=== PATIENT | female | born 1990 | race Caucasian/White ===

== ENCOUNTER 2021-07-16 15:56 | Emergency (ER) | payer BC, SELFPAY ==
[2021-07-16 16:40] VITALS: BP 128/77; PULSE 83; RESP 18; TEMP 36.9; O2SAT 98; BMI 34.8
[2021-07-16 17:15] LABS: UTC Strep Screen (Rapid) Negative (Negative)
--- NOTE | 2021-07-16 17:17 | HMH.EDUTC ---
[facility] Disposition Clinical Impression: Sore throat Disposition: Home, Self-Care Condition on Discharge: Good Instructions: Sore Throat, Middle Ear Infection Additional Instructions: *Monitor Temp, Over the counter Motrin or Tylenol as directed/as needed Tylenol every 4 hours and Motrin every 6 hours (as long as your family doctor has told you that you can take it) for fever or pain. and straight to ER if unable to lower temp less than 101.0 after medication given *Warm salt water gargles may help to soothe the throat *Throat Lozenges *Warm fluids like tea with honey may help to soothe the throat *Sleep elevated *Humidifier/Vaporizer Your throat swab was sent for culture. Those results are typically sent to your primary care. Be sure to follow up in 2-3 days with your family doctor/primary care physician if no improvement so they can review those result and treat if necessary. If you don?t have a primary care doctor, I recommend you get one but in the mean time, you will have to return to a walk in clinic Follow up IMMEDIATELY for new or worsening symptoms or no Noticeable improvement over the next 48-72 hours. 911 for difficulty breathing or swallowing Prescriptions: methylPREDNISolone [Medrol 4mg tab] 4 mg PO DIRECTED #21 tab Transmission Status: Pending to [id number] Cefdinir [Omnicef 300mg Capsule] 300 mg PO BID #20 cap Transmission Status: Pending to [id number] Referrals: Juan Jose Hilliard MD [Primary Care Provider] - Forms: Work/School Release Medical Decision Making - Lucas Inquiry Pt receiving controlled substance: No Lucas was queried for this patient: No Vital Signs: 07/16/21 16:40 07/16/21 17:25 Temperature 98.4 F 98.4 F Temperature Source Oral Pulse Rate 83 Pulse Rate [Right Brachial] 83 Respiratory Rate 18 18 Blood Pressure 128/77 Blood Pressure [Right Arm] 128/77 Blood Pressure Mean [Right Arm] 94 Blood Pressure Source [Right Arm] Automatic Cuff Blood Pressure Position [Right Arm] Sitting 02 Sat by Pulse Oximetry 98 Oxygen Delivery Method Room Air - Lab Data Lab results reviewed: Yes: I reviewed the patient's lab results. Lab Results 07/16/21 16:50: Strep Scn Rapid Clinic Negative 07/16/21 17:15: Monoscreen Negative Orders (Tests/Meds): ORDERS Category Date Time Status Strep Screen Confirmation Stat Micro 07/16/21 16:50 Received [facility] HPI - General Stated complaint: sore throat Time Seen by Provider: 07/16/21 17:17 Mode of Arrival: Ambulatory Source of Information: Patient Limitations: No Limitations Description of Symptoms (Recalled from Triage Doc. by RN): PATIENT C/O SORE/SWOLLEN THROAT SINCE YESTERDAY HEENT Symptoms (Recalled from RN notes): Yes Resp Symptoms (Recalled from RN notes): No Skin Symptoms (Recalled from RN notes): No MS Symptoms (Recalled from RN notes): No Functional Status (Recalled from RN notes): WNL - History of Present Illness Provider Complaint: Patient states that she has been having pain in her right ear and sore throat since yesterday States that she has been having swelling in her tonsils and noticed it looked white all on the right side of her throat and hurts when she swallows States that this evening she was still feeling bad so she came in to get checked - Related Data Previous Rx's Medication Instructions Recorded Azithromycin [Zithromax 250mg 250 mg PO DIRECTED #6 tab 12/02/18 tab] Cefdinir [Omnicef 300mg Capsule] 300 mg PO BID #20 cap 07/16/21 methylPREDNISolone [Medrol 4mg 4 mg PO DIRECTED #21 tab 07/16/21 tab] Allergies Allergy/AdvReac Type Severity Reaction Status Date / Time No Known Allergies Allergy Verified 12/02/18 18:07 - Worker's Comp Is this a Worker's Comp case?: No [facility] History - Hepatitis A Screen Drug use history?: No High risk sexual behaviors?: No History of sexually transmitted infection?: No Currently employed?: No
[2021-07-16 17:25] VITALS: BP 128/77; PULSE 83; RESP 18; TEMP 36.9; O2SAT 98
[2021-07-16 18:09] LABS: Monoscreen (Rapid) Negative (Negative)
== END 2021-07-16 17:30 | disposition home or self-care (01) ==
PROVIDERS: Emergency Provider Nurse Practitioner; PCP Family Medicine
DX: J02.9 Acute pharyngitis, unspecified (principal)
CPT/HCPCS: 86318; 87880; 99203; G0463

== ENCOUNTER 2022-01-29 17:48 | Emergency (ER) | payer OTHER, SELFPAY ==
[2022-01-29 18:11] VITALS: BP 130/83; PULSE 89; RESP 16; TEMP 37; O2SAT 98; BMI 33.0
--- NOTE | 2022-01-29 18:22 | PC.NURSE ---
VISUAL ACUITY LT 20/20 RT 20/25 -1
--- NOTE | 2022-01-29 18:23 | HMH.EDGENADL ---
ED Disposition Clinical Impression: Conjunctival abrasion Qualifiers: Encounter type: initial encounter Laterality: right Qualified Code(s): S05.01XA - Injury of conjunctiva and corneal abrasion without foreign body, right eye, initial encounter Disposition: Home, Self-Care Condition on Discharge: Good Additional Instructions: He is use the antibiotic ointment 4 times per day. Do not rub your eye and if you feel foreign body sensation, you may attempt to gently flush it out with water. Follow-up with your eye doctor tomorrow. Referrals: Juan Jose Hilliard MD [Primary Care Provider] - - Critical Care Critical Care Time: No Attestation: On , the high probability of a clinically significant, sudden or life threatening deterioration of the following system(s) required my full and direct attention, intervention and personal management. The time I documented below is in addition to time spent performing reported procedures but includes the following listed in this critical care notation. Medical Decision Making - Medical Records Medical records reviewed: Yes: I reviewed the patient's medical records. - Lucas Inquiry Pt receiving controlled substance: No Vital Signs: 01/29/22 18:11 Temperature 98.6 F Temperature Source Oral Pulse Rate [Radial] 89 Respiratory Rate 16 Blood Pressure [Right Arm] 130/83 Blood Pressure Mean [Right Arm] 98 Blood Pressure Position [Right Arm] Sitting 02 Sat by Pulse Oximetry 98 Oxygen Delivery Method Room Air Medical Decision Narrative: Patient is a 31-year-old female presenting with a chief complaint of acute right eye pain. Differential diagnosis includes, but is not limited to, corneal versus conjunctival abrasion, laceration, open globe injury, periorbital versus orbital cellulitis, other. Initial exam, patient is hemodynamically stable nontoxic-appearing. Physical exam with fluorescein stain shows that patient's pain resolved after tetracaine drops and uptake is surrounding the inferior limbus. Consistent with limbal abrasion. Patient was given erythromycin ointment, advised regarding supportive care and advised to follow-up with eye doctor tomorrow. General Adult HPI - General Chief complaint: Eye Problems Stated complaint: Foreign body Right eye Time Seen by Provider: 01/29/22 18:20 Mode of Arrival: Ambulatory Limitations: No Limitations Description of Symptoms (Recalled from ER Triage Doc. by RN): TO ED PER PVT CAR WITH C/O RT EYE REDNESS, SWELLING NOTED TO SCLERA, PT C/O FB SENSATION STARTING APPROX 1HR CORN GRINDER. - History of Present Illness HPI narrative: Patient is a healthy 31-year-old female presenting with chief complaint of right eye pain. Patient states that she was outside and felt like she had something in her eye and rubbed it. She has been experiencing a foreign body sensation and pain since. She denies any vision changes, penetrating injury and does not wear contact lenses. No other complaints. - Related Data Previous Rx's Medication Instructions Recorded Azithromycin [Zithromax 250mg 250 mg PO DIRECTED #6 tab 12/02/18 tab] Cefdinir [Omnicef 300mg Capsule] 300 mg PO BID #20 cap 07/16/21 methylPREDNISolone [Medrol 4mg 4 mg PO DIRECTED #21 tab 07/16/21 tab] Allergies Allergy/AdvReac Type Severity Reaction Status Date / Time No Known Allergies Allergy Verified 12/02/18 18:07 [facility] History - Hepatitis A Screen Attestation statement:: This patient has been screened for Hepatitis A risk factors. - Social History Alcohol Intake: never Occupational Status: other ROS Obtained: Yes Systems reviewed as appropriate & no additional complaints - Eyes Eyes: Denies blurry vision, Denies change in vision, Reports eye pain Physical Exam - General General appearance: alert, in no apparent distress - Head Head exam: atraumatic, normocephalic - Eye Eye exam: Present: PERRL, EOMI (Periorbital swelling. Patient h
[2022-01-29 18:55] VITALS: BP 130/80; PULSE 89; RESP 18; TEMP 36.8; O2SAT 99
[2022-01-29 18:57] VITALS: BP 122/74; PULSE 98; RESP 16; TEMP 36.6; O2SAT 98
== END 2022-01-29 18:58 | disposition home or self-care (01) ==
PROVIDERS: Emergency Provider Emergency Medicine; PCP Family Medicine
DX: S05.01XA Injury of conjunctiva and corneal abrasion without foreign body, right eye, initial encounter (principal); Z79.52 Long term (current) use of systemic steroids
CPT/HCPCS: 99282

== ENCOUNTER 2023-06-10 08:35 | Emergency (ER) | payer BC, SELFPAY ==
[2023-06-10 08:45] VITALS: BP 140/87; PULSE 103; RESP 18; TEMP 36.7; O2SAT 98; BMI 33.5
--- NOTE | 2023-06-10 08:56 | EXP.UTC ---
Discharge Plan Disposition Patient Disposition: Home, Self-Care Condition: Good Prescriptions Prescriptions: New Proctofoam HC 1-1 % foam 1 applic UT QID PRN (Reason: hemorrhoids) Qty: 10 0RF bacitracin 500 unit/gram ointment 1 applic topical TID Qty: 28 0RF Rx Instructions: apply to abrasions as prescribed No Action Vivian 24 Fe 1 mg-20 mcg (24)/75 mg (4) tablet 1 tab PO DAILY lisdexamfetamine 40 mg capsule 40 mg PO DAILY Patient Comments: TAKE 1 CAPSULE BY MOUTH EVERY DAY IN THE MORNING Referrals Follow up/Referrals: Juan Jose Hilliard MD [Primary Care Provider] - See instructions Activity Restrictions/Add. Instructions Additional Instructions/Restrictions: Sit in 8 to 10 centimetres (3 to 4 inches) of warm water (sitz bath) 3 times a day and after bowel movements. The warm water helps with pain and itching.Put ice on your anal area several times a day for 10 minutes at a time. Put a thin cloth between the ice and your skin. Follow this by placing a warm, wet towel on the area for another 10 to 20 minutes. Keep the anal area clean, but be gentle. Use water and a fragrance-free soap, or use baby wipes or medicated pads such as Tucks.Wear cotton underwear and loose clothing to decrease moisture in the anal area.Eat more fibre. Include foods such as whole grain breads and cereals, raw vegetables, raw and dried fruits, and beans.Drink plenty of fluids. If you have kidney, heart, or liver disease and have to limit fluids, talk with your doctor before you increase the amount of fluids you drink. Use medication as prescribed Follow up with your Family Doctor if no improvement or any worsening of symptoms Clinical Impressions Clinical Impression: Hemorrhoids Qualifiers: Hemorrhoid type: unspecified Qualified Code(s): K64.9 - Unspecified hemorrhoids Instructions Patient Instructions: Hemorrhoids, DI for Hemorrhoids Discharge ED Provider: Caroline Hood [facility] General Stated complaint: pain in buttocks, no accident Mode of Arrival: Ambulatory Source of Information: Patient Limitations: No Limitations Time Seen by Provider: 06/10/23 08:56 Description of Symptoms (Recalled from Triage Doc. by RN): PATIENT C/O POSSIBLE HEMORRHOID X 1 WEEK HEENT Symptoms (Recalled from RN notes): No Resp Symptoms (Recalled from RN notes): No Skin Symptoms (Recalled from RN notes): No MS Symptoms (Recalled from RN notes): No Functional Status (Recalled from RN notes): WNL History of Present Illness Provider Complaint: Patient states that she has been having issues with a hemorrhoid for about a week States that she has been trying not to scratch but it has been hard she has been itching and now she feels irritated back there and thought she may have a yeast infection but not sure States that today it was feeling worse so she came in to get it looked at Related Data Home Medications Medication Instructions Recorded Confirmed norethindrone 1 mg-ethinyl 1 tab PO DAILY Control 03/06/23 06/10/23 estradiol 20 mcg (24)-iron 75 mg (4) tablet (Vivian 24 Fe) lisdexamfetamine 40 mg capsule 40 mg PO DAILY ADHD 06/10/23 06/10/23 Previous Rx's Medication Instructions Recorded bacitracin 500 unit/gram topical 1 applic topical TID #28 grams 06/10/23 ointment hydrocortisone 1 %-pramoxine 1 % 1 applic UT QID PRN hemorrhoids 06/10/23 rectal foam (Proctofoam HC) #10 grams Allergies Allergy/AdvReac Type Severity Reaction Status Date / Time No Known Allergies Allergy Verified 03/06/23 14:05 Worker's Comp Is this a Worker's Comp case?: No [facility] Disclaimer: The information contained in this section may have been updated after the patient was seen, as this information can be updated by other users. Medical History (Updated 06/10/23 @ 09:17 by Caroline Hood APRN) ADHD Surgical History (Updated 06/10/23 @ 08:57 by Paulina Goodwin RN) History of cholecystectomy
[2023-06-10 09:18] VITALS: BP 140/87; PULSE 103; RESP 18; TEMP 36.7; O2SAT 98
== END 2023-06-10 09:22 | disposition home or self-care (01) ==
PROVIDERS: Emergency Provider Nurse Practitioner; PCP Family Medicine
DX: K64.9 Unspecified hemorrhoids (principal); F90.9 Attention-deficit hyperactivity disorder, unspecified type; F17.210 Nicotine dependence, cigarettes, uncomplicated
CPT/HCPCS: 99212; 99214; G0463

== ENCOUNTER 2023-10-17 18:51 | Outpatient (CLI) | payer BC, SELFPAY | END 2023-10-17 23:59 | LOC: LAB.DROPOF 18:51 | PROVIDERS: PCP Student in an Organized Health Care Education/Training Program; Visit Provider Student in an Organized Health Care Education/Training Program | DX: J02.9 Acute pharyngitis, unspecified (principal); R51.9 Headache, unspecified; R09.81 Nasal congestion; U07.1 COVID-19 | CPT/HCPCS: 87070; 87635 ==

== ENCOUNTER 2024-02-18 20:53 | Emergency (ER) | payer BC, SELFPAY ==
[2024-02-18 20:54] VITALS: BP 141/88; PULSE 84; RESP 20; TEMP 36.4; O2SAT 99; BMI 35.4
--- NOTE | 2024-02-18 20:54 | ED_ITS ---
<Statement entered by Nancy Kee MD - 02/18/24 22:43> I was consulted by the ANGELIQUE, and we discussed the complexity of the problems being addressed. I approved the treatment and management plan for this patient's care in the emergency department, thus performing a substantive portion of the medical decision making. Nancy Kee MD, RYAN, FACEP Discharge Plan Disposition Patient Disposition: Home, Self-Care Condition: Good Prescriptions Prescriptions: New cephalexin 500 mg capsule 500 mg PO BID 7 Days Qty: 14 0RF No Action methylprednisolone 4 mg tablets,dose pack See Rx Instructions PO PER PKG DIR Qty: 21 0RF Rx Instructions: PO PER PKG DIR Vivian 24 Fe 1 mg-20 mcg (24)/75 mg (4) tablet 1 tab PO DAILY lisdexamfetamine 40 mg capsule 40 mg PO DAILY Patient Comments: TAKE 1 CAPSULE BY MOUTH EVERY DAY IN THE MORNING Referrals Follow up/Referrals: Juan Jose Hilliard MD [Primary Care Provider] - See instructions Activity Restrictions/Add. Instructions Additional Instructions/Restrictions: Keep wound clean dry and covered. You may shower with soap and water. Suture removal in 7 days. Return to ER for any worsening signs or symptoms including increasing pain redness or drainage. Clinical Impressions Clinical Impression: Laceration Instructions Patient Instructions: DI for Laceration Repair Discharge ED Provider: Nancy Kee General Adult HPI General Chief complaint: Wound/Laceration Stated complaint: AO06/18@[id number] lac LT hand Time Seen by Provider: 02/18/24 20:54 History of Present Illness HPI narrative: Patient presents for evaluation of a laceration. Patient was utilizing a knife and crafting project and accidentally stabbed herself in her left thenar eminence. She denies loss of motor or sensory function and only pain. Related Data Home Medications Medication Instructions Recorded Confirmed norethindrone 1 mg-ethinyl 1 tab PO DAILY Control 03/06/23 10/17/23 estradiol 20 mcg (24)-iron 75 mg (4) tablet (Vivian 24 Fe) lisdexamfetamine 40 mg capsule 40 mg PO DAILY ADHD 06/10/23 10/17/23 Previous Rx's Medication Instructions Recorded methylprednisolone 4 mg tablets in See Rx Instructions PO PER PKG DIR 10/17/23 a dose pack #21 tabs cephalexin 500 mg capsule 500 mg PO BID 7 days #14 caps 02/18/24 Allergies Allergy/AdvReac Type Severity Reaction Status Date / Time No Known Allergies Allergy Verified 10/17/23 08:38 [facility] Disclaimer: The information contained in this section may have been updated after the patient was seen, as this information can be updated by other users. Medical History ADHD Surgical History History of cholecystectomy Family History Other No significant family history Social History Smoking Status: Never smoker alcohol intake: never current occupational status: other Travel in the last 8 weeks: None ROS Obtained: Yes Systems reviewed as appropriate & no additional complaints except as documented Physical Exam General General appearance: alert and in no apparent distress Respiratory Respiratory exam: Present normal lung sounds bilaterally Cardiovascular Cardiovascular exam: Present regular rate Expanded Upper Extremity Exam Left: Hand L/R front image: 2 1. laceration (1.5 cm laceration) Neurological Exam Neurological exam: Present alert, oriented X3 and CN II-XII intact Medical Decision Making Lucas Inquiry Pt receiving controlled substance: No Vital Signs: 02/18/24 20:54 Temperature 97.6 F Temperature Source Oral Pulse Rate [Left] 84 Respiratory Rate 20 Blood Pressure [Right Arm] 141/88 H Blood Pressure Mean [Right Arm] 105 Blood Pressure Position [Right Arm] Sitting 02 Sat by Pulse Oximetry 99 Oxygen Delivery Method Room Air Orders (Tests/Meds): ED MEDICATIONS Discontinued Medications Generic Name Dose Route Start Last Admin Trade Name Freq PRN Reason Stop Dose Admin Lidocaine/Epinephrine 10 ml 02/18/24 20:58 02/18/24 21:11 Lidocaine 1% W/Epi 1:100,000 20ml Vial SQ 02/18/24 20:59 5 mg ONCE ONE Administration Tetanus/Reduced Diphtheria/Acell Pertussis 0.5 ml 02/18/24 20:58 02/18/24 21:09 Tet/Diphth/Pert-Adult 0.5ml Syringe IM 02/18/24 20:59 0.5 ml .ONCE ONE Administration ORDERS Category Date Time Status Hand XR left minimum 3 views [XR hand LT min 3V] Stat Exams 02/18/24 20:58 Taken Medical Decision Narrative: In summary patient is a 32-year-old female who presents to the emergency department for evaluation of laceration. Patient is patient is hemodynamically stable upon arrival, afebrile. Physical exam is remarkable for 1-1/2 cm laceration to the thenar eminence of her left hand. Patient has full motor and sensory intact and has normal opposition.. Differential diagnosis includes simple superficial laceration versus tendon involvement versus nerve involvement versus bony involvement Cetera. Initial workup will be conducted with plain film x-rays.. Initial interventions include oral Tylenol and Motrin. Initial workup reviewed by me and my informal interpretation of her plain film x-ray shows no bony involvement.. Upon repeat evaluation I closed her wound primarily with four 4-0 nylon sutures after irrigation.. Given this appropriate for discharge with a prescription for Keflex first dose given here. Procedures Laceration Laceration 1: Site: hand Side (If applicable): left Size (cm): 1.5 Description: linear Depth: simple, single layer Local Anesthetic: lidocaine 1% and with epi Amount of anesthesia used (mL): 10 Pre-repair: wound explored, irrigated extensively and deep structures intact Skin layer closed with: nylon Size (cm): 4-0 Number of sutures: 4 Technique: simple, interrupted Critical Care Critical Care Time Critical Care Time: No
--- NOTE | 2024-02-18 20:58 | XR_ITS ---
PROCEDURE INFORMATION: Exam: XR Left Hand Exam date and time: 02/18/2024 8:58 PM Age: 33 years old Clinical indication: Injury or trauma; Other: Cut; Laceration; Hand; Left; Patient HX: Lac to thumb area palm side; Additional info: Cut with a kitchen knife TECHNIQUE: Imaging protocol: Radiologic exam of the left hand. Views: 3 or more views. COMPARISON: No relevant prior studies available. FINDINGS: Bones/joints: Normal. Soft tissues: Normal. IMPRESSION: No acute findings.
[2024-02-18 21:04] VITALS: BP 127/79; PULSE 86; RESP 18; TEMP 36.4; O2SAT 100
[2024-02-18] MEDS: TET/DIPHTH/PERT-ADULT 0.5ML SYRINGE 0.5 ML IM (21:09)
[2024-02-18] MEDS: LIDOCAINE 1% W/EPI 1:100,000 20ML VIAL 10 ML SQ (21:11)
[2024-02-18] MEDS: ACETAMINOPHEN 500MG TAB 1000 MG PO (21:38)
[2024-02-18] MEDS: cephALEXin 500MG CAPSULE 500 MG PO (21:39)
[2024-02-18] MEDS: IBUPROFEN 400 MG TABLET 800 MG PO (21:39)
[2024-02-18 22:29] VITALS: BP 132/84; PULSE 84; RESP 18; TEMP 36.4; O2SAT 99
== END 2024-02-18 22:30 | disposition home or self-care (01) ==
PROVIDERS: Emergency Provider Student in an Organized Health Care Education/Training Program; PCP Family Medicine
DX: S61.412A Laceration without foreign body of left hand, initial encounter (principal); W26.0XXA Contact with knife, initial encounter; Z23 Encounter for immunization
CPT/HCPCS: 12001; 73130; 90471; 90715; 99283

== ENCOUNTER 2024-04-13 09:43 | Outpatient (CLI) | payer BC, OTHER, SELFPAY ==
--- NOTE | 2024-04-13 09:44 | US_ITS ---
PROCEDURE: US TRANSVAGINAL CLINICAL INDICATION: thickened endometrium COMPARISON: No exams were available for comparison FINDINGS: Transvaginal sonographic images of the pelvis were obtained. UTERUS: 8.9cm x 4.3cmx 3.5 cm anteverted with a combined endometrial thickness of 4.4mm. There are small nabothian cysts in the cervix. The cervical canal has a thickened appearance and may be filled with mucus. There are several small calcifications adjacent to the posterior endometrium. There is a trace amount of fluid within the endometrium LEFT OVARY: 3.1cmx1.8 cmx1.6cm with a volume of 4.8ml. There are multiple small follicles. RIGHT OVARY: 3.4cmx 2.1cmx1.4cm with a volume of 4.9ml. There are multiple follicles within the right ovary. The largest measures 0.78 cm. Both ovaries are seen and appear normal. Doppler flow to both ovaries are seen. There is no fluid in the cul-de-sac. IMPRESSION: 1. Anteverted uterus normal in shape and size. The endometrium is thin. There are several small calcifications adjacent to the endometrium. 2. There is a small amount of fluid in the endometrium. 3. The cervical canal is thickened and may be filled with mucus. 4. Both ovaries are seen and appear normal. Both ovaries have multiple small follicles. 5. No fluid in the cul-de-sac. Dictated by: Aleksandr Strauss MD 04/13/2024 13:47 Aleksandr Strauss MD in [place] 04/13/2024 13:47
== END 2024-04-13 23:59 | disposition home or self-care (01) ==
LOC: RAD 09:44
PROVIDERS: PCP Family Medicine; Visit Provider Obstetrics & Gynecology
DX: R93.89 Abnormal findings on diagnostic imaging of other specified body structures (principal)
CPT/HCPCS: 76830

== ENCOUNTER 2024-04-24 08:03 | Outpatient (CLI) | payer BC, OTHER, SELFPAY ==
[2024-04-24 10:55] LABS: Hemoglobin A1C 5.1 % (4.0-6.0)
[2024-04-25 10:11] LABS: Prolactin 9.9 ng/mL (4.8-33.4)
== END 2024-04-24 23:59 | disposition home or self-care (01) ==
LOC: LAB 08:04
PROVIDERS: PCP Family Medicine; Visit Provider Obstetrics & Gynecology
DX: R53.83 Other fatigue (principal)
CPT/HCPCS: 36415; 83036; 84146; 84443

== ENCOUNTER 2024-05-19 13:45 | Outpatient (CLI) | payer BC, OTHER, SELFPAY ==
[2024-05-22 07:35] LABS: Neisseria gonorrhoeae, NAA Negative (Negative)
== END 2024-05-19 23:59 | disposition home or self-care (01) ==
LOC: LAB.DROPOF 05-20 12:43
PROVIDERS: PCP Obstetrics & Gynecology; Visit Provider Obstetrics & Gynecology
DX: N91.1 Secondary amenorrhea (principal)
CPT/HCPCS: 87491; 87591

== ENCOUNTER 2024-05-26 15:50 | Outpatient (CLI) | payer BC, OTHER, SELFPAY ==
--- NOTE | 2024-05-26 15:51 | US_ITS ---
PROCEDURE: US TRANSVAGINAL CLINICAL INDICATION: Non visible IUD Strings, check placement COMPARISON: US US TRANSVAGINAL from 04/13/2024 FINDINGS: Transvaginal sonographic images of the pelvis were obtained. UTERUS: 8.3 cm x 5.0cmx 3.7 cm anteverted with a combined endometrial thickness of 3.8mm. There is an IUD within the uterine cavity in the correct position. LEFT OVARY: 2.7 cmx1.6 cmx1.5cm with a volume of 3.3ml. There are several small follicles within the ovary. RIGHT OVARY: 3.5cmx 1.7 cmx1.8 cm with a volume of 5.7ml. There are several small follicles. Both ovaries are seen and appear normal. Doppler flow to both ovaries are seen. There is no fluid in the cul-de-sac. IMPRESSION: 1. Anteverted uterus normal in shape and size. The endometrium is thin measuring 3.8 mm. 2. There is an IUD within the uterine cavity in the correct position. 3. Both ovaries are seen and have multiple small follicles. 4. No fluid in the cul-de-sac. Dictated by: Aleksandr Strauss MD 05/26/2024 17:18 Aleksandr Strauss MD in [place] 05/26/2024 17:18
== END 2024-05-26 23:59 | disposition home or self-care (01) ==
LOC: RAD 15:51
PROVIDERS: PCP Family Medicine; Visit Provider Obstetrics & Gynecology
DX: Z97.5 Presence of (intrauterine) contraceptive device (principal)
CPT/HCPCS: 76830

== ENCOUNTER 2025-05-26 08:22 | Outpatient (CLI) | payer BC, SELFPAY ==
--- OUTSIDE RECORDS SUMMARY | 2024-05-28 05:45 | XMS_ITS ---
Author Organization [place] Address 12[address] [facility] [address] [place] [id number] Care Team Providers Care [employer] Assistant Principal Name Role Phone Florencio Hilliard Primary Care Provider Allergies No Known Allergies REASON FOR VISIT check up; refills Medications Medication SIG (Take, Route, Frequency, Duration) Notes Start Date End Date Status Fluconazole 150 MG 1 tablet Orally once 03/19/2024 Not-Taking Wegovy 1.7 MG/0.75ML 0.75 ml Subcutaneou s once a week 05/28/2024 Active Vyvanse 40 MG 1 capsule in the mor apple Orally Once a day 05/07/2024 Active Vital Signs Blood pressure systolic 118 mm Hg 05/28/20 24 Blood pressure diastolic 72 mm Hg 024 Heart Rate 94 /min 05/28/2024 Height 64.25 in 05/28/2024 Weight 188.4 lbs 05/28/2024 BMI 32.08 kg/m2 05/28/2024 Encounters Encounter Location Date Provider Diagnosis [facility] [address] [place] [phone] 05/28/2024 Florencio Hilliard Attention deficit hyperactivity disorder (ADHD), combined type F90.2 and Overweight E66.3 Assessments Encounter Date Diagnosis (ICD Code) Assessment Notes Treatment Notes Treatment Clinical Notes Section Notes 05/28/2024 Attention deficit hyperactivity disorder (ADHD), combined type (ICD-10 - F90.2) 05/28/2024 Overweight (ICD-10 - E66.3) Continue diet and exercise regimen Plan Of Treatment Medication Medication Name Sig Start Date Stop Date Notes Wegovy 1 MG/0.5ML 0.5 ml Subcutaneous once a week Wegovy 1.7 MG/0.75ML 0.75 ml Subcutaneous once a week 05/04 Vyvanse 40 MG 1 capsule in the mor apple Orally Once a day 05/07/2024 Treatment Notes Assessment Notes Overweight Continue diet and ex ercise regimen Next Appt Details Follow Up: 3 Months, Reason: Progress Notes * SATISH GALEDOB:1990 (34 yo F)Acc No.[id number]:05/28/2024 Progress Notes Patient: SATISH WHEAT Provider: Florencio Hilliard M.D. :1990 A ge:33 Y S ex:Female Date:05/28/2024 Address:[address] [place] [address] , [place], [id number] Subjective: * Chief Complaints: * 1 . Check up; refills. * HPI: P sychology: ADD/ADHD P t presents today for a check up and refills. .? C onstitutional: Regarding weight management, she feels her current dose of Wegovy is not working as well and would like to try the next higher dose. * ROS: D ERMATOLOGY: no R ish. n o H jun. G ASTROENTEROLOGY: no N ausea. n o V omiting. n o D iarrhea.? U ROLOGY: no D ifficulty urinating. n o B lood in urine. * Medical History: A DD, Lichen planus. * Surgical History: c holecystectomy 2012. * Hospitalization/Major Diagno stic Procedure: c hild 2017. * Family History: F ather: alive, diagnosed with Mental Illness. M other: alive. 1 sister(s) - healthy. 1 son(s) , 1 daughter(s) - healthy. . Pts Father has schizophrenia and bi-polar disorder Sister has ADHD. * Social History: C URRENT TOBACCO USE: No . C affeine: yes, frequency: 2 cups daily - coffee, tea, soft drinks. Home smoke detector use: yes. Alcohol: No. * Medications: T aking Wegovy 1 MG/0.5ML Solution Auto-injector 0.5 ml Subcutaneous once a week , Taking Vyvanse 40 MG Capsule 1 capsule in the morning Orally Once a day , Not- Taking Fluconazole 150 MG Tablet 1 tablet Orally once , Discontinued Clindamycin HCl 300 MG Capsule 1 capsule Orally Three times a day , Medication List reviewed and reconciled with the patient * Allergies: N .K.D.A. Objective: * Vitals: W t:188.4, Temp:98.4, BP:118/72, HR:94, Nurse:IMANI, Ht: 64.25, BMI:32.08. * Examination: G eneral Examination: General Appearance: A ffect good. Weight loss noted.?Heart: R SR. L ungs: c lear to auscultation. Assessment: * Assessment: 1. A ttention deficit hyperactivity disorder (ADHD), combined type - F90.2 (Primary) 2 . O verweight - E66.3 Plan: * Treatment: 2. O verweight Notes: Continue diet and exercise regimen 3. O thers Stop Wegovy Solution Auto-injector, 1 MG/0.5ML, 0.5 ml, Subcutaneous, once a week; I ncrease Wegovy Solution Auto-injector, 1.7 MG/0.75ML, 0.75 ml, Subcutaneous, once a week, 4, Refills 2. ? * Follow Up: 3 Months * Images: Billing Information: * Visit Code: 13065 Office Visit, Est Pt., Level 4. * Procedure Codes: * Electronic signature of Florencio Hilliard MD on 05/26/2025 at 08:43 AM EDT Sign off status: Pending * Provider: Florencio Hilliard M.D. Date: 05/28/2024 Generated for Daniel kirk/Tammie/eTransmitting on: 05/26/2025 08:43 AM EDT History and Physical Notes * HPI (History of Present Illness) Category Sub-Category Detail Notes Category Not es Psychology ADD/ADHD Pt presents today for a chec k up and refills. Examination Category Sub-Category Detail Notes Category Not es General Examination Heart: RSR Lungs: clear to auscultatio n General Appearance: Affect good. Weight loss noted
--- OUTSIDE RECORDS SUMMARY | 2024-08-18 12:00 | XMS_ITS ---
Author Organization [place] Address [address] [place] [address] [place] [phone] Care Team Providers Care Truck Striker Name Role Phone Florencio Hilliard Primary Care Provider Allergies No Known Allergies REASON FOR VISIT Checkup Medications Medication SIG (Take, Route, Frequency, Duration) Notes Start Date End Date Status Wegovy 2.4 MG/0.75ML 0.75 mL Subcutaneou s once weekly 06/25/2024 Active Vyvanse 40 MG 1 capsule in the mor apple Orally Once a day 08/18/2024 Active Fluconazole 150 MG 1 tablet Orally once 03/19/2024 Not-Taking Problems Problem Type SNOMED Code ICD Code Onset Dates Problem Status W/U Status Risk Notes Problem Overweight (505083177) Overweight (E66.3) Active confirmed Vital Signs Blood pressure systolic 114 mm Hg 08/18/20 24 Blood pressure diastolic 60 mm Hg 024 Heart Rate 70 /min 08/18/2024 Height 64.25 in 08/18/2024 Weight 179.4 lbs 08/18/2024 BMI 30.55 kg/m2 08/18/2024 Encounters Encounter Location Date Provider Diagnosis [facility] [address] [facility] [address] [place] [phone] 08/18/2024 Florencio Hilliard Attention deficit hyperactivity disorder (ADHD), combined type F90.2 and Overweight E66.3 Assessments Encounter Date Diagnosis (ICD Code) Assessment Notes Treatment Notes Treatment Clinical Notes Section Notes 08/18/2024 Attention deficit hyperactivity disorder (ADHD), combined type (ICD-10 - F90.2) 08/18/2024 Overweight (ICD-10 - E66.3) Continue diet and exercise regimen Plan Of Treatment Medication Medication Name Sig Start Date Stop Date Notes Wegovy 2.4 MG/0.75ML 0.75 mL Subcutaneous once weekly 06/03 Vyvanse 40 MG 1 capsule in the mor apple Orally Once a day 08/18/2024 Treatment Notes Assessment Notes Overweight Continue diet and ex ercise regimen Next Appt Details Follow Up: 3 Months, Reason: Progress Notes * SATISH GALEDOB:1990 (34 yo F)Acc No.[id number]:08/18/2024 Progress Notes Patient: SATISH WHEAT Provider: Florencio Hilliard M.D. :1990 A ge:33 Y S ex:Female Date:08/18/2024 Address:[facility] [address], [place], [id number] Subjective: * Chief Complaints: * 1 . Checkup. * HPI: P sychology: Pt presents today for a check up and refill of Vyvanse. Pt sts that she is doing well and has no new concerns or complaints at this time. * ROS: D ERMATOLOGY: no R ish. [...] yes. Alcohol: No. * Medications: T aking Vyvanse 40 MG Capsule 1 capsule in the morning Orally Once a day , Taking Wegovy 2.4 MG/0.75ML Solution Auto-injector 0.75 mL Subcutaneous once weekly , Not-Taking Fluconazole 150 MG Tablet 1 tablet Orally once , Medication List reviewed and reconciled with the patient * Allergies: N .K.D.A. Objective: * Vitals: W t:179.4, Temp:97.4, BP:114/60, HR:70, Nurse:IMANI, Ht: 64.25, BMI:30.55. * Examination: G eneral Examination: General Appearance: A ffect good. Weight loss noted.?Heart: R SR. L ungs: c lear to auscultation. Assessment: * Assessment: 1. A ttention deficit hyperactivity disorder (ADHD), combined type - F90.2 (Primary) 2 . O verweight - E66.3 Plan: * Treatment: 2. O verweight Continue Wegovy Solution Auto-injector, 2.4 MG/0.75ML, 0.75 mL, Subcutaneous, once weekly. ? Notes: Continue diet and exercise regimen * Follow Up: 3 Months * Images: Billing Information: * Visit Code: 14169 Office Visit, Est Pt., Level 3. * Procedure Codes: * Electronic signature of Florencio Hilliard MD on 05/26/2025 at 08:44 AM EDT Sign off status: Pending * Provider: Florencio Hilliard M.D. Date: 10/19/2023 Generated for Daniel kirk/Tammie/Suzanne on: 0 05/26/2025 08:44 AM EDT History and Physical Notes * Examination Category Sub-Category Detail Notes Category Not es General Examination Heart: RSR Lungs: clear to auscultatio n General Appearance: Affect good. Weight loss noted
--- OUTSIDE RECORDS SUMMARY | 2024-11-10 11:30 | XMS_ITS ---
Author Organization [facility] Address 1210 [facility] [address] [place] [phone] Care Team Providers Care Waterproofing Machine Operator Name Role Phone Florencio Hilliard Primary Care Provider Allergies No Known Allergies REASON FOR VISIT refills Medications Medication SIG (Take, Route, Fr equency, Duration) Notes Start Date End Date Status Vyvanse 40 MG 1 capsule in the mor apple Orally Once a day 11/11/2024 Active Wegovy 1.7 MG/0.75ML 0.75 mL Subcutaneou s once weekly Active Vital Signs Blood pressure systolic 112 mm Hg 11/11/19 25 Blood pressure diastolic 72 mm Hg 025 Heart Rate 78 /min 11/10/2024 Height 64.25 in 11/10/2024 Weight 172.0 lbs 11/10/2024 BMI 29.29 kg/m2 11/10/2024 Encounters Encounter Location Date Provider Diagnosis Kate 1210 [facility] [address] [place] [phone] 11/10/2024 Florencio Hilliard Overweight E66.3 ; Attention deficit hyperactivity disorder (ADHD), combined type F90.2 and Screening for lipid disorders Z13.220 Assessments Encounter Date Diagnosis (ICD Code) Assessment Notes Treatment Notes Treatment Clinical Notes Section Notes 11/10/2024 Overweight (ICD-10 - E66.3) 11/10/2024 Attention deficit hyperactivity disorder (ADHD), combined type (ICD-10 - F90.2) 11/10/2024 Screening for lipid disorders (ICD-10 - Z13.220) Plan Of Treatment Medication Medication Name Sig Start Date Stop Date Notes Vyvanse 40 MG 1 capsule in the mor apple Orally Once a day 11/11/2024 Wegovy 1.7 MG/0.75ML 0.75 mL Subcutaneous once weekly Next Appt Details Follow Up: 3 Months, Reason: Progress Notes * SATISH GALEDOB:1990 (34 yo F)Acc No.[id number]:11/10/2024 Progress Notes Patient: SATISH WHEAT Provider: Florencio Hilliard M.D. :1990 A ge:34 Y S ex:Female Date:11/10/2024 Address:[address] [place] [address] , [place], [id number] Subjective: * Chief Complaints: * 1 . Refills. * HPI: H PI: 34 year old female presents with c/o Patient is here today for?Pt presents today for a check up with refills. P sychology: c/o ADD/ADHD P t sts that she is doing well on Vyvanse and has no concerns or complaints. * ROS: D ERMATOLOGY: no R ish. [...] Orally Once a day , Taking Wegovy 1.7 MG/0.75ML Solution Auto-injector 0.75 mL Subcutaneous once weekly , Medication List reviewed and reconciled with the patient * Allergies: N .K.D.A. Objective: * Vitals: W t:172.0, Temp:97.8, BP:112/72, HR:78, Nurse:velasquez, Ht: 64.25, BMI:29.29. * Examination: G eneral Examination: General Appearance: A ffect good. Note continued weight loss. H eart: R SR. L ungs: c lear to auscultation. Assessment: * Assessment: 1. O verweight - E66.3 (Primary) 2 . A ttention deficit hyperactivity disorder (ADHD), combined type - F90.2 3 . S creening for lipid disorders - Z13.220? Plan: * Treatment: 2. A ttention deficit hyperactivity disorder (ADHD), combined type Refill Vyvanse Capsule, 40 MG, 1 capsule in the morning, Orally, Once a day, 30, Refills 0. ? * Procedure Codes: 3 074F SYST BP LT 130 MM HG, 3078F DIAST BP < 80 MM HG * Follow Up: 3 Months * Images: Billing Information: * Visit Code: 70155 Office Visit, Est Pt., Level 3. * Procedure Codes: 3074F SYST BP LT 130 MM HG. 3078F DIAST BP < 80 MM HG. * Electronic signature of Florencio Hilliard MD on 05/26/2025 at 08:43 AM EDT Sign off status: Pending * Provider: Florencio Hilliard M.D. Date: 0 11/10/2024 Generated for Devyni reagan/Tammie/eTransmitting on: 0 05/26/2025 08:43 AM EDT History and Physical Notes * HPI (History of Present Illness) Category Sub-Category Detail Notes Category Not es Psychology ADD/ADHD Pt sts that she is doing well on Vyvanse and has no concerns or complaints HPI Patient is here today for Pt pre sents today for a check up with refills Examination Category Sub-Category Detail Notes Category Not es General Examination Heart: RSR Lungs: clear to auscultatio n General Appearance: Affect good. Note co ntinued weight loss
--- OUTSIDE RECORDS SUMMARY | 2025-02-11 11:30 | XMS_ITS ---
Author Organization [facility] Address 1210 [facility] [address] [place] [phone] Care Team Providers Care Natural Resources Engineer Name Role Phone Florencio Hilliard Primary Care Provider Allergies No Known Allergies REASON FOR VISIT refills Medications Medication SIG (Take, Route, Fr equency, Duration) Notes Start Date End Date Status Wegovy 1.7 MG/0.75ML 0.75 mL Subcutaneou s once weekly Active Vyvanse 40 MG 1 capsule in the mor apple Orally Once a day 02/11/2025 Active Vital Signs Blood pressure systolic 100 mm Hg 02/12/20 25 Blood pressure diastolic 62 mm Hg 025 Heart Rate 80 /min 02/11/2025 Height 64.25 in 02/11/2025 Weight 170.4 lbs 02/11/2025 BMI 29.02 kg/m2 02/11/2025 Encounters Encounter Location Date Provider Diagnosis Kate [address] [facility] [address] [place] [phone] 02/11/2025 Florencio Hilliard Overweight E66.3 ; Encounter for weight management Z76.89 ; Attention deficit hyperactivity disorder (ADHD), combined type F90.2 and BMI 29.0-29.9,adult Z68.29 Assessments Encounter Date Diagnosis (ICD Code) Assessment Notes Treatment Notes Treatment Clinical Notes Section Notes 02/11/2025 Overweight (ICD-10 - E66.3) 02/11/2025 Encounter for weight management (ICD-10 - Z76.89) 02/11/2025 Attention deficit hyperactivity disorder (ADHD), combined type (ICD-10 - F90.2) 02/11/2025 BMI 29.0-29.9,adult (ICD-10 - Z68.29) Plan Of Treatment Medication Medication Name Sig Start Date Stop Date Notes Wegovy 1.7 MG/0.75ML 0.75 mL Subcutaneous once weekly Vyvanse 40 MG 1 capsule in the mor apple Orally Once a day 02/11/2025 Next Appt Details Follow Up: 3 Months, Reason: Progress Notes * SATISH GALEDOB:1990 (34 yo F)Acc No.[id number]:02/11/2025 Progress Notes Patient: SATISH WHEAT Provider: Florencio Hilliard M.D. :1990 A ge:34 Y S ex:Female Date:02/11/2025 Address:[address] [place] [address] , [place], [id number] Subjective: * Chief Complaints: * 1 . Refills. * HPI: H PI: 34 year old female presents with c/o Patient is here today for?Pt is here today for refills on her medications. C onstitutional: She is doing well with diet, exercise, and medication compliance. She has continued to lose weight. No side effects with the Wegovy. * ROS: D ERMATOLOGY: no R ish. [...] Alcohol: No. * Medications: T aking Wegovy 1.7 MG/0.75ML Solution Auto-injector 0.75 mL Subcutaneous once weekly , Taking Vyvanse 40 MG Capsule 1 capsule in the morning Orally Once a day , Medication List reviewed and reconciled with the patient * Allergies: N .K.D.A. Objective: * Vitals: W t: 170.4, Temp: 97.9, BP: 100/62, HR: 80, Nurse: [facility], Ht: 64.25, BMI:29.02. * Examination: G eneral Examination: General Appearance: A ffect good. Note continued weight loss. H eart: R SR. L ungs: c lear to auscultation. Assessment: * Assessment: 1. E ncounter for weight management - Z76.89 (Primary) 2 . O verweight - E66.3 3 . A ttention deficit hyperactivity disorder (ADHD), combined type - F90.2? 4. B FL 29.0-29.9,adult - Z68.29 Plan: * Treatment: 2. A ttention deficit hyperactivity disorder (ADHD), combined type Refill Vyvanse Capsule, 40 MG, 1 capsule in the morning, Orally, Once a day, 30, Refills 0. ? * Procedure Codes: 1 036F TOBACCO NON-USER, G8783 BP SCR PRFRM RCMDD DEFIND SCR INTVL, G8752 MOST RECENT SYSTOLIC BP < 140MM HG, G8754 MOST RECENT DIASTOLIC BP < 90MM HG * Follow Up: 3 Months * Images: Billing Information: * Visit Code: 22855 Office Visit, Est Pt., Level 3. * Procedure Codes: 1036F TOBACCO NON-USER. G8783 BP SCR PRFRM RCMDD DEFIND SCR INTVL. G8752 MOST RECENT SYSTOLIC BP < 140MM HG. G8754 MOST RECENT DIASTOLIC BP < 90MM HG. * Electronic signature of Florencio Hilliard MD on 05/26/2025 at 08:43 AM EDT Sign off status: Pending * Provider: Florencio Hilliard M.D. Date: 0 02/11/2025 Generated for Daniel kirk/Tammie/Curtitting on: 0 05/26/2025 08:43 AM EDT History and Physical Notes * HPI (History of Present Illness) Category Sub-Category Detail Notes Category Not es Constitutional She is doing well with diet, exercise, and medication compliance. She has continued to lose weight. No side effects with the Wegovy. HPI Patient is here today for Pt is here today for refills on her medications Examination Category Sub-Category Detail Notes Category Not es General Examination Heart: RSR Lungs: clear to auscultatio n General Appearance: Affect good. Note co ntinued weight loss
--- OUTSIDE RECORDS SUMMARY | 2025-05-20 11:30 | XMS_ITS ---
[facility] Address [address] [facility] [address] [place], [place] [address] Care Team Providers Care On Call Name Role Phone Florencio Hilliard Primary Care Provider Allergies No Known Allergies Results Component Value Reference Range Notes P-Urine Drug Screen with Ref florencio to Confirmation Reviewed date:05/25/2025 11:59:23 AM Interpretation:Negative Performing Lab: Notes/Report: Test performed by [facility] [address] , [address], [place] [address] Joel Tsang MD, Triple Drum Operator CLIA: [id number] Amphetamines NEGATIVE NEGATIVE Barbiturates NEGATIVE NEGATIVE Benzodiazepines NEGATIVE NEGATIVE Cannabinoids NEGATIVE NEGATIVE Cocaine Metabolites NEGATIVE NEGATIVE Oxycodone NEGATIVE NEGATIVE Methadone NEGATIVE NEGATIVE Opiates NEGATIVE NEGATIVE Phencyclidine NEGATIVE NEGATIVE Propoxyphene NEGATIVE NEGATIVE Immunoassay Drug Screen Tyler Values See Below Please see the Directory of Services for cut-off concentrations. Urine drug screen results are for medical decision making and are not to be used for medico-legal evaluation. REASON FOR VISIT 3 months Medications Medication SIG (Take, Route, Fr equency, Duration) Notes Start Date End Date Status Vyvanse 40 MG 1 capsule in the mor apple Orally Once a day 05/20/2025 Active Wegovy 2.4 MG/0.75ML 0.75 mL Subcutaneou s once a week; Duration: 28 days Active Problems Problem Type SNOMED Code ICD Code Onset Dates Problem Status W/U Status Risk Notes Problem Attention deficit disorder (48350619) ADD (attention deficit disorder) (F90.0) Active confirmed Vital Signs Blood pressure systolic 118 mm Hg 05/20/20 25 Blood pressure diastolic 68 mm Hg 025 Heart Rate 89 /min 05/20/2025 Height 64.25 in 05/20/2025 Weight 175 lbs 05/20/2025 BMI 29.8 kg/m2 05/20/2025 Encounters Encounter Location Date Provider Diagnosis [facility] [address] [facility] [address] [place] [id number] 05/20/2025 Florencio Hilliard Encounter for weight management Z76.89 ; Pre-employment examination Z02.1 ; Screening for lipid disorders Z13.220 ; Vitamin D deficiency disease E55.9 and ADD (attention deficit disorder) F90.0 Assessments Encounter Date Diagnosis (ICD Code) Assessment Notes Treatment Notes Treatment Clinical Notes Section Notes 05/20/2025 Encounter for weight management (ICD-10 - Z76.89) 05/20/2025 Pre-employment examination (ICD-10 - Z02.1) She is cleared for employment without restrictions. 05/20/2025 Screening for lipid disorders (ICD-10 - Z13.220) 05/20/2025 Vitamin D deficiency disease (ICD-10 - E55.9) 05/20/2025 ADD (attention deficit disorder) (ICD-10 - F90.0) Plan Of Treatment Medication Medication Name Sig Start Date Stop Date Notes Vyvanse 40 MG 1 capsule in the mor apple Orally Once a day 05/20/2025 Wegovy 2.4 MG/0.75ML 0.75 mL Subcutaneou s once a week; Duration: 28 days Treatment Notes Assessment Notes Pre-employment examination She is cleare d for employment without restrictions. Pending Test Test Name Order Date H-Lipid Panel 05/20/2025 H-CMP 05/20/2025 H-Vitamin D 1,25 05/20/2025 Next Appt Details Follow Up: 3 Months, Reason: Progress Notes * SATISH GALEDOB:1990 (34 yo F)Acc No.[id number]:05/20/2025 Progress Notes Patient: SATISH WHEAT Provider: Florencio Hilliard M.D. :1990 A ge:34 Y S ex:Female Date:05/20/2025 Address:Formerly named [facility] Eze Tran, Ashli retana, [id number] Subjective: * Chief Complaints: * 1 . 3 months. * HPI: H PI: She needs a pre-employment physical and urine drug screen required by her job with the [employer]. C onstitutional: She comes in for follow-up on weight management and Wegovy therapy. She states she has not been as consistent with taking her shot recently because of vacation and other issues. Her weight has been fairly stable. She is trying to exercise. * Medical History: A DD, Lichen planus. [...] MG/0.75ML Solution Auto-injector 0.75 mL Subcutaneous once a week , Medication List reviewed and reconciled with the patient * Allergies: N .K.D.A. Objective: * Vitals: W t: 175, Temp: 97.7, BP: 118/68, HR: 89, Nurse: velasquez, Ht: 64.25, BMI:29.8. * Examination: G eneral Examination: General Appearance: N AD. H EENT: s clera and conjunctiva clear, PERRLA, TM's normal, translucent. O ral cavity: n o lesions, mucosa moist and WNL, no erythema. N telly: s upple, no lymphadenopathy. C hest: n ormal shape and expansion. H eart: R SR. L ungs: c lear to auscultation. N eurologic Exam: n ormal cranial nerves II-XII sensory & motor WNL, DTR 2 plus. S kin: n ormal, no rash. E xtremities: n o leg edema. Assessment: * Assessment: 1. P re-employment examination - Z02.1 (Primary) 2 . E ncounter for weight management - Z76.89 3 . S creening for lipid disorders - Z13.220 ?4. V itamin D deficiency disease - E55.9 5 . A DD (attention deficit disorder) - F90.0 Plan: * Treatment: 2. E ncounter for weight management Refill Wegovy Solution Auto-injector, 2.4 MG/0.75ML, 0.75 mL, Subcutaneous, once a week, 28 days, 3 ml, Refills 2. 3. O thers Refill Vyvanse Capsule, 40 MG, 1 capsule in the morning, Orally, Once a day, 30, Refills 0. ? * Labs: * L ab: P-Urine Drug Screen with Reflex to Confirmation (Collection Date & Time - 05/20/2025 02:58 PM) N egative Value Reference Range A mphetamines, Urine NEGATIVE NEGATIVE - * B enzodiazepines, Urine NEGATIVE NEGATIVE - * B arbiturates, Urine NEGATIVE NEGATIVE - * C ocaine Metabolites, Urine NEGATIVE NEGATIVE - * C annabinoids, Urine NEGATIVE NEGATIVE - * I mmunoassay Drug Screen Tyler Values See Below - * M ethadone, Urine NEGATIVE NEGATIVE - * O piates, Urine NEGATIVE NEGATIVE - * O xycodone, Urine Qualitative NEGATIVE NEGATIVE - * P ropoxyphene, Urine NEGATIVE NEGATIVE - * P hencyclidine, Urine NEGATIVE NEGATIVE - * Florencio Hilliard 05/25/2025 11:59:12 AM EDT > reviewed ?Lab: H-Lipid Panel?Lab: H-CMP?Lab: H-Vitamin D 1,25 * Follow Up: 3 Months * Images: Billing Information: * Visit Code: 31752 Office Visit, Est Pt., Level 4. * Procedure Codes: * Electronic signature of Florencio Hilliard MD on 05/26/2025 at 08:44 AM EDT Sign off status: Pending * Provider: Florencio Hilliard M.D. Date: 0 05/20/2025 Generated for Devyni ng/Tammie/eTransmitting on: 0 05/26/2025 08:44 AM EDT History and Physical Notes * HPI (History of Present Illness) Category Sub-Category Detail Notes Category Not es Constitutional She comes in for follow-up on weight management and Wegovy therapy. She states she has not been as consistent with taking her shot recently because of vacation and other issues. Her weight has been fairly stable. She is trying to exercise. HPI She needs a pre -employment physical and urine drug screen required by her job with the [employer]. Examination Category Sub-Category Detail Notes Category Not es General Examination HEENT: sclera and c onjunctiva clear, PERRLA, TM's normal, translucent Heart: RSR Lungs: clear to auscultatio n Extremities: no leg edema General Appearance: NAD Skin: normal, no rash Neurologic Exam: normal cranial nerve s II-XII sensory & motor WNL, DTR 2 plus Neck: supple, no lymphaden opathy Oral cavity: no lesions, mucosa m oist and WNL, no erythema Chest: normal shape and exp ansion
--- OUTSIDE RECORDS SUMMARY | 2025-05-26 08:43 | XMS_ITS | Patient Health Record ---
[facility] [address] [facility] [address] [place] [id number] Care Team Providers Care Mold Cooler Name Role Phone Florencio Hilliard Primary Care Provider [phone] Allergies No Known Allergies Results Component Value Reference Range Notes P-Urine Drug Screen with Ref florencio to Confirmation Reviewed date:05/25/2025 11:59:23 AM Interpretation:Negative Performing Lab: Notes/Report: Test performed by [facility] [address] [place] [address] , [address], [place] [address] Joel Tsang MD, Fountain Attendant CLIA: [id number] Amphetamines NEGATIVE NEGATIVE Barbiturates NEGATIVE NEGATIVE Benzodiazepines NEGATIVE NEGATIVE Cannabinoids NEGATIVE NEGATIVE Cocaine Metabolites NEGATIVE NEGATIVE Oxycodone NEGATIVE NEGATIVE Methadone NEGATIVE NEGATIVE Opiates NEGATIVE NEGATIVE Phencyclidine NEGATIVE NEGATIVE Propoxyphene NEGATIVE NEGATIVE Immunoassay Drug Screen Corinth Values See Below Please see the Directory of Services for cut-off concentrations. Urine drug screen results are for medical decision making and are not to be used for medico-legal evaluation. Reason For Referral No Information Medications Medication SIG (Take, Route, Fr equency, Duration) Notes Start Date End Date Status Vyvanse 40 MG 1 capsule in the mor apple Orally Once a day 05/20/2025 Active Wegovy 2.4 MG/0.75ML 0.75 mL Subcutaneou s once a week; Duration: 28 days Active Immunizations Vaccine Route Administration Date Status Comme nts COVID 19 Moderna Unknown 07/07/2021 Administered COVID 19 Moderna Unknown 08/07/2021 Administered ppd SC Subcutaneous 03/21/2018 Administered Problems Problem Type SNOMED Code ICD Code Onset Dates Problem Status W/U Status Risk Notes Problem Vitamin D deficiency (91819915) Vitamin D deficiency (E55.9) Active confirmed Problem Overweight (372164082) Overweight (E66.3) Active confirmed Problem Obese class II (911767635235735) BMI 35.0-35.9,adult (Z68.35) Active confirmed Problem Attention deficit hyperactivity disorder (053707948) Attention deficit hyperactivity disorder (ADHD), combined type (F90.2) Active confirmed Problem Body mass index 30.00 to 34.99 (857944131378867) BMI 34.0-34.9,adult (Z68.34) Active confirmed Problem Attention deficit disorder (22848377) ADD (attention deficit disorder) (F90.0) Active confirmed Problem Adult attention deficit hyperactivity disorder (disorder) (700449459) Attention deficit disorder (ADD) in adult (F98.8) Active confirmed Vital Signs Heart Rate 89 /min 05/20/2025 Blood pressure diastolic 68 mm Hg 05/20/2025 Height 64.25 in 05/20/2025 Blood pressure systolic 118 mm Hg 05/20/2025 Weight 175 lbs 05/20/2025 BMI 29.8 kg/m2 05/20/2025 Encounters Encounter [facility] Date [facility] [address] [id number] 05/28/2024 R Haresh Babak Attention deficit hyperactivity disorder (ADHD), combined type F90.[address] [facility] [address] [place] [address] [place] [id number] 08/18/2024 R Haresh Babak Attention deficit hyperactivity disorder (ADHD), combined type F90.2 and Overweight E66.[address] [place] [id number] 11/10/2024 R Haresh Babak Overweight E66.3 ; Attention deficit hyperactivity disorder (ADHD), combined type F90.2 and Screening for lipid disorders Z13.220 [facility] [address] [facility] [address] [place] [id number] 02/11/2025 R Haresh Babak Overweight E66.3 ; Encounter for weight management Z76.89 ; Attention deficit hyperactivity disorder (ADHD), combined type F90.2 and BMI 29.0-29.9,adult Z68.29 [facility] [address] [place], [place] [id number] 05/20/2025 R Haresh Babak Encounter for weight management Z76.89 ; Pre-employment examination Z02.1 ; Screening for lipid disorders Z13.220 ; Vitamin D deficiency disease E55.9 and ADD (attention deficit disorder) F90.0 [facility] [address] [place], [place] [id number] 06/25/2024 R Haresh Babak Attention deficit hyperactivity disorder (ADHD), combined type F90.2 [facility] [address] [place] [id number] 09/09/2024 R Haresh Babak Overweight E66.3 [facility] [address] [place] [id number] 10/01/2024 R Haresh Babak Attention deficit hyperactivity disorder (ADHD), combined type F90.2 [facility] [address] [place], [place] [id number] 10/20/2024 R Haresh Babak Overweight E66.3 [facility] [address] [place], [place] [id number] 11/17/2024 R Haresh Babak [facility] [address] [place] [id number] 12/31/2024 R Haresh Babak Attention deficit hyperactivity disorder (ADHD), combined type F90.2 [facility] [address] [place], [place] [id number] 04/06/2025 R Haresh Babak Attention deficit hyperactivity disorder (ADHD), combined type F90.2 and Overweight E66.3 Assessments Encounter Date Diagnosis (ICD Code) Assessment Notes Treatment Notes Treatment Clinical Notes Section Notes 05/28/2024 Overweight (ICD-10 - E66.3) Continue diet and exercise regimen 05/28/2024 Attention deficit hyperactivity disorder (ADHD), combined type (ICD-10 - F90.2) 06/25/2024 Attention deficit hyperactivity disorder (ADHD), combined type (ICD-10 - F90.2) 08/18/2024 Overweight (ICD-10 - E66.3) Continue diet and exercise regimen 08/18/2024 Attention deficit hyperactivity disorder (ADHD), combined type (ICD-10 - F90.2) 09/09/2024 Overweight (ICD-10 - E66.3) 10/01/2024 Attention deficit hyperactivity disorder (ADHD), combined type (ICD-10 - F90.2) 10/20/2024 Overweight (ICD-10 - E66.3) 11/10/2024 Overweight (ICD-10 - E66.3) 11/10/2024 Attention deficit hyperactivity disorder (ADHD), combined type (ICD-10 - F90.2) 12/31/2024 Attention deficit hyperactivity disorder (ADHD), combined type (ICD-10 - F90.2) 02/11/2025 Overweight (ICD-10 - E66.3) 04/06/2025 Attention deficit hyperactivity disorder (ADHD), combined type (ICD-10 - F90.2) 02/11/2025 Encounter for weight management (ICD-10 - Z76.89) 05/20/2025 Pre-employment examination (ICD-10 - Z02.1) She is cleared for employment without restrictions. 05/20/2025 Encounter for weight management (ICD-10 - Z76.89) 04/06/2025 Overweight (ICD-10 - E66.3) 05/20/2025 Screening for lipid disorders (ICD-10 - Z13.220) 02/11/2025 Attention deficit hyperactivity disorder (ADHD), combined type (ICD-10 - F90.2) 11/10/2024 Screening for lipid disorders (ICD-10 - Z13.220) 02/11/2025 BMI 29.0-29.9,adult (ICD-10 - Z68.29) 05/20/2025 Vitamin D deficiency disease (ICD-10 - E55.9) 05/20/2025 ADD (attention deficit disorder) (ICD-10 - F90.0) Plan Of Treatment Pending Test Test Name Order Date H-Lipid Panel 05/20/2025 H-CMP 05/20/2025 H-Vitamin D 1,25 05/20/2025 Insurance Providers Payer Name Payer Address Payer Phone Subscriber Number Group Number Insured Name Patient Relationship to Insured Coverage Start Date Coverage End Date VICTORIANO MAR [employer]OSS[employer] [address] [place] [address] [id number] SATISH Gale Self - patient is the insured [facility] [address] [place], [place] [id number] SATISH Gale Self - patient is the insured Medical (General) History Medical History History ICD Code ADD Lichen planus Surgical History Surgery Date(Month/Year) cholecystectomy 2012 Hospitalization History Reason Date(Month/Year) child 2016
--- OUTSIDE RECORDS SUMMARY | 2025-05-26 08:44 | XMS_ITS | Clinical Summary ---
Author Organization [facility] Address [address] [place] [address] Care Team Providers Care Distiller Name Role Phone Juan Jose Hilliard MD Primary Care Provider Allergies No known active allergies Medications lisdexamfetamine (VYVANSE) 40 MG capsule Take 1 capsule by mouth Every Morning 3 Active Vivian 24 FE 1-20 MG-MCG(24) per tabletIndications: Encounter for initial prescription of contraceptive pills Take 1 tablet by mouth once daily 84 tablet 4 Active Active Problems Problem Noted Date Diagnosed Date Recurrent vaginitis 08/06/2023 Overview (08/06/2023): Usually happens after menses, most uncomfortable on the outside. I have not evaluated her when she is actively symptomatic. Nuswab sent 08/06/23. She can try using menstrual cup or organic tampons, she feels tampons are a trigger. Can try boric acid suppositories after menses. Nystatin/triamcinolone given for external use. Discussed decreasing moisture and sugar, she will have PCP check BG level Women's annual routine gynecological examination 10/11/2020 Morbid obesity with BMI of 40.0-44.9, adult 05/2019 Family history of congenital heart disease 04/26 Resolved Problems Problem Noted Date Diagnosed Date Resolved Date Normal labor 01/10/2019 10/11/2020 Maternal congenital heart disease, antepartum 08/13/20 18 10/11/2020 Echogenic focus of heart, fe slim, affecting care of mother, antepartum 05/24/2016 10/11/2020 04/26/2016 10/11/2020 Family History Medical History Relation Name Comments Breast cancer Maternal Grandmother Diabetes Maternal Great-Grandmother Other Mother precancerous ce rvical ca- had LEEP Cancer Paternal Grandfather Colon cancer Neg Hx Osteoporosis Neg Hx Ovarian cancer Neg Hx Uterine cancer Neg Hx Relation Name Status Comments Maternal Grandmother Maternal Great-Grandmother Mother Paternal Grandfather Social History Tobacco Use Types Packs/Day Years Used Date Smoking Tobacco: Never Smokeless Tobacco: Never Alcohol Use Standard Drinks/Week Comments Yes 0 (1 standard drink = 0.6 oz pur e alcohol) [place] Depression Scale Answer Date Recorded Retired [place] Depression Score 5 01/10/2019 Retired EPD Scale: Thought of Harming Self Unrec ognized value 01/10/2019 Abuse Screen Answer Date Recorded Unsafe at Home or Work/School Not on file Feels Threatened by Someone? Not on file 06/2023 Does Anyone Keep You from Co ntacting Others or Doint Things Outside the Home? Not on file 06/11/2023 Physical Sign of Abuse Present Not on file 1 Housing Stability Answer Date Recorded Current Living Arrangements Not on file 06/02 Potentially Unsafe Housing Conditions Not on jennifer e 06/11/2023 Family and Community Support Answer Dominick e Recorded Help with Day-to-Day Activities Not on file 06/11/2023 Lonely or Isolated Not on file 06/11/2023 Employment Answer Date Recorded Do you want help finding or keeping work or a edwige b? Not on file 06/11/2023 Disabilities Answer Date Recorded Concentrating, Remembering, or Making Decisions Difficulty Not on file 06/11/2023 Doing Errands Independently Difficulty Not on fi le 06/11/2023 Education Answer Date Recorded Help with school or training? Not on file Preferred Language Not on file 06/11/2023 Comments No Sex and Gender Information Value Date Recorded Sex Assigned at Not on file Legal Sex Female 1:43 PM EDT Gender Identity Not on file Sexual Orientation Not on file Last Filed Vital Signs Vital Sign Reading Time Taken Comments Blood Pressure 118/78 08/06/2023 8:18 AM EST Pulse 63 01/12/2019 7:00 AM EDT Temperature 36.3 C (97.3 F) 10/11/2020 2:13 PM EST Respiratory Rate 16 01/12/2019 7:00 AM EDT Oxygen Saturation - - Inhaled Oxygen Concentration - - Weight 89.5 kg (197 lb 6.4 oz) 08/06/2023 8:18 A M EST Height 162.6 cm (5' 4 ) 08/06/2023 8:18 AM EST Body Mass Index 33.88 08/06/2023 8:18 AM EST Plan of Treatment Health Maintenance Due Date Last Done Comments TDAP/TD VACCINES (2 - Tdap) 03/04/2016 03/04/2006 ANNUAL PHYSICAL 04/26/2016 HEPATITIS C SCREENING 04/26/2016 Annual Gynecologic Pelvic and Breast Exam 04/24/2024 04/23/2023 INFLUENZA VACCINE 04/02/2025 PAP SMEAR 04/23/2026 04/23/2023, 10/04, 10/12/2020, Additional history exists Pneumococcal Vaccine 0-49 Aged Out No longer eligible based on patient's age to complete this topic Procedures Procedure Name Priority Date/Time Associated Diagnosis Comments LIQUID-BASED PAP SMEAR WITH HPV GENOTYPING IF ASCUS, [facility] ([facility]) Routine 04/23/2023 8:45 AM EDT Atypical squamous cells of undetermined significance (ASCUS) on Papanicolaou smear of cervix Women's annual routine gynecological examination from Last 3 Months or Most Recently Relevant to Health Maintenance Results * LIQUID-BASED PAP SMEAR WITH HPV GENOTYPING IF ASCUS (VIVIANE,COR,MAD) (04/23/2023 8:45 AM EDT) [facility] Reference Lab Report [facility] [address] [place] [address] or [phone] Juan Jose Cochran M.D., Transcripter PATIENT NAME LABORATORY [id number] SATISH GALE [id number] AGE SEX SSN CLIENT REF # [facility] 32 1990 F [id number] Lang HALL REQUESTING Leena ATTENDING [place] [address] SABRINA JONES DATE COLLECTED DATE RECEIVED DATE REPORTED 04/23/2023 04/23/2023 04/26/2023 ThinPrep Pap with Cytyc Imaging DIAGNOSIS: Epithelial cell abnormality. (ASC) Atypical squamous cells of undetermined significance. Professional interpretation rendered by Diomedes Sparks M.D.,F.C.A.P. at [facility], [address] [place] [address]. SPECIMEN ADEQUACY: SATISFACTORY FOR EVALUATION Transformation zone is present. SOURCE OF SPECIMEN: CERVICAL/ENDOCERVI CARRINGTON SLIDES: 1 CLINICAL HISTORY: Atypical squamous cells of undetermined significance (ASCUS) on Papanicolaou smear of cervix, Women's annual routine gynecological examination, control pills HPV HR-HPV POOL: Negative The Aptima HPV assay is an in vitro nucleic acid amplification test for the qualitative detection of E6/E7 viral messenger RNA from 14 high risk types of HPV in cervical specimens. The high risk HPV types detected include: 16, 18, 31, 33, 35, 39, 45, 51, 52, 56, 58, 59, 66, 68 Chlamydia / Gonorrhea CHLAMYDIA TRACHOMATIS: Negative NEISSERIA GONORRHOEAE: Negative The Aptima Combo 2 assay is a target amplification nucleic acid probe test that utilizes target capture for the in vitro qualitative detection and differentiation of ribosomal RNA from Chlamydia trachomatis and Neisseria gonorrhoeae to aid in the diagnosis of chlamdial and gonococcal disease using the [facility] system. WHARF HELPER: DARRION BELLAMY(ASCP) REVIEWED, DIAGNOSED AND ELECTRONICALLY SIGNED BY: Diomedes Sparks M.D.,F.C.A.P. CPT CODES: 60522, 22930, 69226, 70506, 82347 04/26/2023 12:31 PM EDT [facility] ThinPrep Vial Collection / Unknown 04/23/2023 8:45 AM EDT 04/23/2023 8:45 AM EDT Sabrina Jones QA SPECIALIST PATHOLOGY/CYTOLOGY ORDERA BLES Final Result [facility]
[address] [place] [address], [place] [phone] from Last 3 Months or Most Recently Relevant to Health Maintenance [facility] Member Subscriber Plan / Payer (Ef fective 2018-Present) Name:Satish Gale Relation to Subscriber:Self Name:Satish Gale Payer ID:[id number] Group ID:[id number] Type:Not on file Address: [facility] [address] EMPLOYEE Advance Directives * CPR (Attempt to Resuscitate) (Latest Code Status on File) Date Activated Date Inactivated Comments 01/10/2019 3:25 PM 01/12/2019 2:36 PM Question Answer Comments Code Status (Patient has no pulse and is not breathing): CPR (Attempt to Resuscitate) Medical Interventions (Patie nt has pulse or is breathing): Full * CPR (Attempt to Resuscitate) Date Activated Date Inactivated Comments 01/10/2019 4:56 AM 01/10/2019 3:25 PM Question Answer Comments Code Status (Patient has no pulse and is not breathing): CPR (Attempt to Resuscitate) Medical Interventions (Patie nt has pulse or is breathing): Full * Full Code Date Activated Date Inactivated Comments 09/26/2016 9:16 PM 09/28/2016 2:51 PM * Full Code Date Activated Date Inactivated Comments 09/25/2016 9:22 PM 09/26/2016 9:16 PM Care Teams Distiller Relationship Specialty Start Date End Date Juan Jose Hilliard MD [address] [facility] [address] [facility] [address] [place] [address] PCP - General Family Medicine 03/11/23
[2025-05-26 09:42] LABS: 25-OH Vitamin D, Total 30.8 ng/mL (30-100)
[2025-05-26 10:07] LABS: Albumin Level 4.2 g/dl (3.5-5.0); Chloride 102 mmol/L (98-107); Potassium 4.5 mmoL/L (3.5-5.1); Sodium 138 mmol/L (136-145)
[2025-05-26 10:10] LABS: Alanine Aminotransferase 25 U/L (12-78); Albumin/Globulin Ratio 1.7 (1.1-1.8); Alkaline Phosphatase 60 U/L (38-126); Anion Gap 11.5 mEq/L (5-15); Aspartate Amino Transferase 32 U/L (14-36); Bilirubin,Total 1.0 mg/dl (0.2-1.3); Blood Urea Nitrogen 12 mg/dl (7-17); Calcium 9.5 mg/dl (8.4-10.2); Carbon Dioxide 29 mmol/L (22.0-30.0); Cholesterol 142 mg/dl (140-200); Creatinine,Serum 0.70 mg/dl (0.52-1.04); Estimated Glomerular Filt Rate 96 ml/min (>60); GFR (African American) 116 ML/MIN (>60); Globulin 2.5 g/dL (1.3-3.2); Glucose 83 mg/dl (74-100); Total Protein,Serum 6.7 g/dl (6.3-8.2); Triglycerides 36 mg/dl (30-150)
[2025-05-26 10:11] LABS: HDL Cholesterol 70 mg/dl (40-60)
== END 2025-05-26 23:59 | disposition home or self-care (01) ==
PROVIDERS: PCP Family Medicine; Visit Provider Family Medicine
DX: E55.9 Vitamin D deficiency, unspecified (principal); E66.3 Overweight; F90.2 Attention-deficit hyperactivity disorder, combined type; Z13.220 Encounter for screening for lipoid disorders
CPT/HCPCS: 36415; 80053; 80061; 82306